=== PATIENT | male | born 1985 ===

== ENCOUNTER 2016-10-19 16:42 | Inpatient (IN) | payer MEDICAID, OTHER ==
--- NOTE | 2016-10-19 18:12 | ED PDOC ---
HPI: Psych/Substance Abuse Time Seen by Provider: 10/19/16 17:19 Chief Complaint (Nursing): Psychiatric Evaluation Chief Complaint (Provider): Alcohol Intoxication History Per: Patient History/Exam Limitations: no limitations Onset/Duration Of Symptoms: Days Current Symptoms Are (Timing): Still Present Additional Complaint(s): Earl Mojica, a 31 year old male, who has no past medical or family history of mental illness is brought into the ED by his brother for psychiatric evaluation. The patients brother states for about 10 days he has noticed a change in the patient's mental status along with rapid weight loss. He reports that the patient has been acting bizarre and has been complaining that he is hearing voices and that there is someone following him. The brother reports that 10 days ago the patient just stopped going to work and he has had this job for 2 years. He states that no one know's wrong with the patient. The patient admits that ever since he was a child he was bale to see things that other's could not see. He further states that recently he was trying to meditate to reach divine intervention and he was bale to see Gerhardkori Sands and humans of a parallel universe. The patient goes on to say that since then an alien has been following him and trying to do sexual things to him and so he has been going to jewish trying to see Gerhardkori Sands again. Denies recent infection, cough, cold, abdominal pain. Past Medical History Reviewed: Historical Data, Nursing Documentation, Vital Signs Vital Signs: Last Vital Signs Temp 98.5 F 10/19/16 17:01 Pulse 93 H 10/19/16 17:01 Resp 18 10/19/16 17:01 BP 134/78 10/19/16 17:01 Pulse Ox 100 10/19/16 17:01 - Medical History PMH: No Chronic Diseases - Family History Family History: States: Unknown Family Hx - Home Medications Home Medications: Ambulatory Orders Medication Instructions Recorded No Known Home Med 10/19/16 - Allergies Allergies/Adverse Reactions: Allergies Allergy/AdvReac Type Severity Reaction Status Date / Time No Known Allergies Allergy Verified 10/19/16 17:58 Review of Systems Constitutional: Positive for: Other (Denies recent infection.) Respiratory: Positive for: Other (Denies cold.). Negative for: Cough Gastrointestinal: Negative for: Abdominal Pain Physical Exam - Reviewed Nursing Documentation Reviewed: Yes Vital Signs Reviewed: Yes - Physical Exam Appears: Positive for: Non-toxic, No Acute Distress Head Exam: Positive for: ATRAUMATIC, NORMAL INSPECTION Skin: Positive for: Normal Color, Warm, Dry Eye Exam: Positive for: Normal appearance, EOMI, PERRL ENT: Positive for: Normal ENT Inspection Neck: Positive for: Normal, Painless ROM, Supple Cardiovascular/Chest: Positive for: Regular Rate, Rhythm, Chest Non Tender. Negative for: Tachycardia Respiratory: Positive for: Normal Breath Sounds. Negative for: Wheezing, Respiratory Distress Gastrointestinal/Abdominal: Positive for: Normal Exam, Bowel Sounds, Soft. Negative for: Tenderness, Guarding, Rebound Back: Positive for: Normal Inspection. Negative for: L CVA Tenderness, R CVA Tenderness Extremity: Positive for: Normal ROM. Negative for: Tenderness, Pedal Edema, Deformity, Swelling Neurologic/Psych: Positive for: Alert, Oriented, Gait - Laboratory Results Result Diagrams: 10/19/16 18:20 10/19/16 18:20 - ECG O2 Sat by Pulse Oximetry: 100 (RA) Pulse Ox Interpretation: Normal Medical Decision Making Medical Decision Makin:19 Initial Impression: 31 year old male presenting for psychiatric evaluation Initial Plan: * CT Head w/o contrast: * FINDINGS: BRAIN: No significant acute abnormality identified. No acute hemorrhage seen within the brain. No acute extra-axial fluid collections visualized. No evidence of significant mass effect within the brain. Normal taveras-white matter differentiation. VENTRICLES: No evidence of significant hydrocephalus. BONES/JOINTS: No acute fractures or other acute bony abnormality noted. SOFT TISSUES: No acute abnormality of the visualized soft tissues is seen. SINUSES: Visualized paranasal sinuses appear clear. MASTOID AIR CELLS: Mastoid air cells appear clear. IMPRESSION: - No acute findings seen within the brain. * Alcohol serum * Ammonia * Comp metabolic panel * Drug screen * CBC * Reevaluation PT was evaluted by crisis and will need admission for psychosis under MD Leia Scribe Attestation Documented by Nadia Laws acting as a scribe for Stephanie Ervin PA-C. MD Scribe Attestation All medical record entries made by the Daquan were at my direction and personally dictated by me. I have reviewed the chart and agree that the record accurately reflects my personal performance of the history, physical exam, medical decision making, and the department course for this patient. I have also personally directed, reviewed, and agree with the discharge instructions and disposition. Disposition - Clinical Impression Clinical Impression: Psychosis - Patient ED Disposition Is Patient to be Admitted: No - Disposition Disposition: Routine/Home Disposition Time: 19:47 Condition: STABLE - Pt Status Changed To: Hospital Disposition Of: Inpatient - Admit Certification Admit to Inpatient:: After my assessment, the patient will require hospitalization for at least two midnights. This is because of the severity of symptoms shown, intensity of services needed, and/or the medical risk in this patient being treated as an outpatient.
[2016-10-19 18:38] LABS: BASO % 0.3 % (0.0-2.0); EOS # 0.1 K/uL (0.0-0.7); HEMOGLOBIN 15.4 g/dL (12.0-18.0); LYMPH # 1.3 K/uL (1.0-4.3); LYMPH % 17.7 % (20.0-40.0); MEAN CELL VOLUME 88.6 fl (80.0-94.0); MEAN CORPUSCULAR HEMOGLOBIN 30.2 pg (27.0-31.0); MEAN PLATELET VOLUME 8.8 fl (7.2-11.7); MONO # 0.7 K/uL (0.0-0.8); NEUT # 5.3 K/uL (1.8-7.0); RBC 5.12 Mil/uL (4.40-5.90); RED CELL DISTRIBUTION WIDTH 12.4 % (11.5-14.5); WHITE BLOOD COUNT 7.4 K/uL (4.8-10.8)
[2016-10-19 18:49] LABS: ALB/GLOB RATIO 1.5 (1.0-2.1); ALBUMIN 4.9 g/dL (3.5-5.0); ALT/SGPT 46 U/L (21-72); AST/SGOT 26 U/L (17-59); BLOOD UREA NITROGEN 11 mg/dl (9-20); CALCIUM 9.4 mg/dL (8.4-10.2); GFR AFRICAN-AMERICAN > 60; GFR NON-AFRICAN AMERICAN > 60
--- NOTE | 2016-10-19 19:33 | CT ---
EXAM: CT Head Without Intravenous Contrast CLINICAL HISTORY: 31 years old, male; Signs and symptoms; Other: ETOH? Mental illness; Additional info: Hallucainotins acute onset TECHNIQUE: Axial computed tomography images of the head/brain without intravenous contrast. This CT exam was performed using one or more of the following dose reduction techniques: automated exposure control, adjustment of the mA and/or kV according to patient size, and/or use of iterative reconstruction technique. Coronal and sagittal reformatted images were created and reviewed. EXAM DATE/TIME: 10/19/2016 5:48 PM COMPARISON: No relevant prior studies available. FINDINGS: BRAIN: No significant acute abnormality identified. No acute hemorrhage seen within the brain. No acute extra-axial fluid collections visualized. No evidence of significant mass effect within the brain. Normal taveras-white matter differentiation. VENTRICLES: No evidence of significant hydrocephalus. BONES/JOINTS: No acute fractures or other acute bony abnormality noted. SOFT TISSUES: No acute abnormality of the visualized soft tissues is seen. SINUSES: Visualized paranasal sinuses appear clear. MASTOID AIR CELLS: Mastoid air cells appear clear. IMPRESSION: - No acute findings seen within the brain. - See above for remaining findings.
[2016-10-19 19:34] LABS: BARBITURATES, UR NEGATIVE (NEGATIVE); BENZODIAZEPINES, UR NEGATIVE (NEGATIVE); OPIATES, UR NEGATIVE (NEGATIVE); PHENCYCLIDINE, UR NEGATIVE (NEGATIVE)
[2016-10-19] MEDS ORDERED: Magnesium Hydroxide Susp 30 ml UD PO PRN (21:17)
[2016-10-19] MEDS ORDERED: DiphenhydrAMINE 50 mg/ml Inj IM PRN (21:17)
[2016-10-19] MEDS ORDERED: Alum-Mag Hydrox-Simethicone Susp (30 mL) PO PRN (21:17)
[2016-10-20 06:47] LABS: T4 9.23 ug/dl (5.5-11.0)
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
--- NOTE | 2016-10-20 19:22 | CARD ---
APPROVED REPORT EKG Measurement Heart [id number] VT [id number] <Conclusion> Normal sinus rhythm with sinus arrhythmia Normal ECG
--- NOTE | 2016-10-21 09:02 | PCM.PYCHPN ---
Psychiatric Progress Note - Psychiatric Progress Note Patient seen today, length of contact: Patient evaluated, case discussed with team, chart reviewed, 35 min Patient Chief Complaint: "I'm having difficulty telling what's real" Problems Identified/Issues Discussed: Patients continued auditory hallucinations, but reports that the voices are helpful to him and provide guidance. He reports that he has difficulty telling what is reality. When asked about the aliens, he states that he is not sure if they are real. We discussed continued titration of Risperdal for his acute psychosis and he was agreeable. No adverse effects noted. Medication Change: Yes (Increase Risperdal to 1 mg PO Q12) Medical Record Reviewed: Yes Mental Status Examination - Cognitive Function Orientation: Person, Place, Situation, Time Memory: Intact Attention: WNL Concentration: WNL Association: WNL Fund of Knowledge: WNL - Mood Mood: Neutral - Affect Affect: Constricted - Speech Speech: Appropriate - Formal Thought Process Formal Thought Process: Hallucinations, Delusions, Loosening of associations Psychotic Thoughts and Behaviors: +AH, +Delusions about space aliens - Suicidal Ideation Suicidal Ideation: No - Homicidal Ideation Homicidal Ideation: No Goal/Treatment Plan - Goal/Treatment Plan Need for Continued Stay: Remain at risks for inpatient hospitalization, Discharge may exacerbated symptoms, Severe functional impairment Progress Toward Problem(s) and Goals/Treatment Plan: Brief psychotic disorder; patient continues to be acutely psychotic. He requires continued hospitalization for treatment and stabilization. -Increase Risperdal to 1 mg PO Q12 hr; will titrate as clinically indicated -Individual and group therapy -Dietary Referral -Medicine consult appreciated -Disposition planning Estimated Date of D/C: 10/24/16
--- NOTE | 2016-10-22 09:36 | PCM.PYCHPN ---
Psychiatric Progress Note - Psychiatric Progress Note Patient seen today, length of contact: Patient evaluated, case discussed with team, chart reviewed, 35 min Patient Chief Complaint: "I'm special" Problems Identified/Issues Discussed: Patients continued auditory hallucinations, but reports that the bad voices went away and only the good voices are left, which help him. He believes they are fairies and creatures from another dimension. He believes he has special hood, including the ability to rewind time. He also believes he has a special mission to spread the word of God. We discussed continued titration of Risperdal for his acute psychosis and he was agreeable. No adverse effects noted. Medication Change: Yes (Increase Risperdal to 1 mg PO AM/ 2 mg HS) Medical Record Reviewed: Yes Mental Status Examination - Cognitive Function Orientation: Person, Place, Situation, Time Memory: Intact Attention: WNL Concentration: WNL Association: [facility] Fund of Knowledge: [facility] Decription of patient's judgement and insights: Poor insight/fair judgment - Mood Mood: Neutral - Affect Affect: Constricted - Speech Speech: Appropriate - Formal Thought Process Formal Thought Process: Hallucinations, Delusions, Loosening of associations Psychotic Thoughts and Behaviors: +AH, +Delusions about having special abilities - Suicidal Ideation Suicidal Ideation: No - Homicidal Ideation Homicidal Ideation: No Goal/Treatment Plan - Goal/Treatment Plan Need for Continued Stay: Remain at risks for inpatient hospitalization, Discharge may exacerbated symptoms, Severe functional impairment Progress Toward Problem(s) and Goals/Treatment Plan: Brief psychotic disorder; patient continues to be acutely psychotic. He requires continued hospitalization for treatment and stabilization. -Increase Risperdal to 1 mg AM/ 2 mg HS; will titrate as clinically indicated -Individual and group therapy -Dietary Referral -Medicine consult appreciated -Disposition planning Estimated Date of D/C: 10/27/16
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
[2016-10-23 09:24] VITALS: O2SAT 18
--- NOTE | 2016-10-23 11:54 | PCM.PYCHPN ---
Psychiatric Progress Note - Psychiatric Progress Note Patient seen today, length of contact: discussed with team Patient Chief Complaint: i am tired Problems Identified/Issues Discussed: pt in room laying in bed. he has received haldol/ativan at around 10am for auditory hallucinations that were distressing to him. he is now resting. he states the voices are getting better. he states his sleep is "messed up" but he is somewhat vague with details. he appears to be internally preoccupied and with some thought blocking. aside from the c/o feeling tired, he denies any other medication side effects. Medication Change: Yes (dc ambien, prn trazodone started. split risperdal) Medical Record Reviewed: Yes Mental Status Examination - Cognitive Function Orientation: Person, Place, Situation, Time Memory: Intact Attention: WNL Concentration: WNL Association: WNL Fund of Knowledge: WN Decription of patient's judgement and insights: fair- help seeking - Mood Mood: Neutral - Affect Affect: Constricted - Speech Speech: Appropriate, Soft - Formal Thought Process Formal Thought Process: Hallucinations, Delusions, Paranoia, Loosening of associations, Other (some thought blocking) Psychotic Thoughts and Behaviors: auditory hallucinations, bizarre delusions - Suicidal Ideation Suicidal Ideation: No - Homicidal Ideation Homicidal Ideation: No Goal/Treatment Plan - Goal/Treatment Plan Need for Continued Stay: Remain at risks for inpatient hospitalization, Discharge may exacerbated symptoms, Severe functional impairment Progress Toward Problem(s) and Goals/Treatment Plan: psychotic disorder will split the risperdal to 1mg in am and 2mg hs replace ambien with trazodone encourage participation in groups monitor for side effects pt with gross disturbance in thoughts and needs continued hospitalization. Estimated Date of D/C: 10/27/16
--- NOTE | 2016-10-24 10:50 | PCM.PYCHPN ---
Psychiatric Progress Note - Psychiatric Progress Note Patient seen today, length of contact: discussed with team Patient Chief Complaint: i just feel tired Problems Identified/Issues Discussed: pt states the voices are fading, but now only saying positive things. states they are like fairies and describes it as a spiritual thing- "i have my brain and my spiritual mind." pt cannot explain his tired feeling- not sure if it is physical or mentally tired and denies feeling depressed. pt does attend groups. he denies medication side effects. pt is asking to be given a bible to read. Medication Change: No ( ) Medical Record Reviewed: Yes Mental Status Examination - Cognitive Function Orientation: Person, Place, Situation, Time Memory: Intact Attention: WNL Concentration: WNL Association: WNL Fund of Knowledge: [facility] Decription of patient's judgement and insights: fair- help seeking - Mood Mood: Neutral - Affect Affect: Constricted - Speech Speech: Appropriate, Soft - Formal Thought Process Formal Thought Process: Hallucinations, Delusions, Paranoia, Loosening of associations, Other (some thought blocking) Psychotic Thoughts and Behaviors: auditory hallucinations- hears supportive voices, bizarre delusions- feels he can manipulate time with his mind, pentecostal preoccupation - Suicidal Ideation Suicidal Ideation: No - Homicidal Ideation Homicidal Ideation: No Goal/Treatment Plan - Goal/Treatment Plan Need for Continued Stay: Remain at risks for inpatient hospitalization, Discharge may exacerbated symptoms, Severe functional impairment Progress Toward Problem(s) and Goals/Treatment Plan: psychotic disorder will continue risperdal 1mg in am and 2mg hs encourage participation in groups monitor for side effects pt with gross disturbance in thoughts and needs continued hospitalization. Estimated Date of D/C: 10/27/16
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
--- NOTE | 2016-10-27 13:15 | PCM.PYCHPN ---
Psychiatric Progress Note - Psychiatric Progress Note Patient seen today, length of contact: in treatment team Patient Chief Complaint: i feel better, still tired Problems Identified/Issues Discussed: pt states he is thinking much more clearly. states the voices have improved. denies thoughts to harm himself. states his symptoms are now at a 9/10 with 0 being the worse. pt denies medication side effects. Medication Change: Yes (will give risperdal all at night again) Medical Record Reviewed: Yes Mental Status Examination - Cognitive Function Orientation: Person, Place, Situation, Time Memory: Intact Attention: WNL Concentration: WNL Association: [facility] Fund of Knowledge: [facility] Decription of patient's judgement and insights: fair - Mood Mood: Neutral - Affect Affect: Constricted - Speech Speech: Soft - Formal Thought Process Formal Thought Process: Hallucinations, Delusions, Paranoia, Loosening of associations Psychotic Thoughts and Behaviors: improving - Suicidal Ideation Suicidal Ideation: No - Homicidal Ideation Homicidal Ideation: No Goal/Treatment Plan - Goal/Treatment Plan Need for Continued Stay: Remain at risks for inpatient hospitalization, Discharge may exacerbated symptoms, Severe functional impairment Progress Toward Problem(s) and Goals/Treatment Plan: psychotic disorder will continue risperdal- switch to 4mg hs tomorrow encourage participation in groups monitor for side effects t/c dc thursday Estimated Date of D/C: 10/29/16
--- NOTE | 2016-10-28 11:17 | PCM.PYCHPN ---
Psychiatric Progress Note - Psychiatric Progress Note Patient seen today, length of contact: discussed with team Patient Chief Complaint: i feel better Problems Identified/Issues Discussed: pt states he is not hearing voices today. got haldol last night, and states he is sleeping better. denies any side effects. affect is brighter Medication Change: No ( ) Medical Record Reviewed: Yes Mental Status Examination - Cognitive Function Orientation: Person, Place, Situation, Time Memory: Intact Attention: WNL Concentration: WNL Association: WNL Fund of Knowledge: [facility] Decription of patient's judgement and insights: fair - Mood Mood: Neutral - Affect Affect: Constricted (brighter affect) - Speech Speech: Soft - Formal Thought Process Formal Thought Process: Paranoia, Loosening of associations Psychotic Thoughts and Behaviors: improving - Suicidal Ideation Suicidal Ideation: No - Homicidal Ideation Homicidal Ideation: No Goal/Treatment Plan - Goal/Treatment Plan Need for Continued Stay: Remain at risks for inpatient hospitalization, Discharge may exacerbated symptoms, Severe functional impairment Progress Toward Problem(s) and Goals/Treatment Plan: psychotic disorder will continue risperdal- switch to 4mg hs raffi encourage participation in groups disposition planning Estimated Date of D/C: 10/29/16
--- NOTE | 2016-10-29 13:18 | PCM.PYCHPN ---
Psychiatric Progress Note - Psychiatric Progress Note Patient seen today, length of contact: discussed with team Patient Chief Complaint: i feel better Problems Identified/Issues Discussed: pt states he is not hearing voices as much. still with some delusional thoughts. still vague and internally preoccupied. states "i am happy all the time now" but affect is flat. he is now agreeing to attend a php program and acknowledges he is not ready to work. Medication Change: Yes (increase risperdal) Medical Record Reviewed: Yes Mental Status Examination - Cognitive Function Orientation: Person, Place, Situation, Time Memory: Intact Attention: WNL Concentration: WNL Association: [facility] Fund of Knowledge: [facility] Decription of patient's judgement and insights: fair - Mood Mood: Other Additional comments: "i am happy" - Affect Affect: Blunted - Speech Speech: Soft - Formal Thought Process Formal Thought Process: Paranoia, Loosening of associations, Other (vague) Psychotic Thoughts and Behaviors: improving - Suicidal Ideation Suicidal Ideation: No - Homicidal Ideation Homicidal Ideation: No Goal/Treatment Plan - Goal/Treatment Plan Need for Continued Stay: Remain at risks for inpatient hospitalization, Discharge may exacerbated symptoms, Severe functional impairment Progress Toward Problem(s) and Goals/Treatment Plan: psychotic disorder will continue risperdal- switch to 5mg hs lauraight encourage participation in groups disposition planning Estimated Date of D/C: 10/31/16
--- NOTE | 2016-10-30 10:55 | PCM.PYCHPN ---
Psychiatric Progress Note - Psychiatric Progress Note Patient seen today, length of contact: discussed with team Patient Chief Complaint: i am ok Problems Identified/Issues Discussed: pt continues to report feeling better and no voices. has been referred to an iop program. denies medication side effects. still with constricted affect. Medication Change: No ( ) Medical Record Reviewed: Yes Mental Status Examination - Cognitive Function Orientation: Person, Place, Situation, Time Memory: Intact Attention: WNL Concentration: WNL Association: WNL Fund of Knowledge: WNL Decription of patient's judgement and insights: fair - Mood Mood: Other - Affect Affect: Blunted - Speech Speech: Soft - Formal Thought Process Formal Thought Process: Paranoia, Loosening of associations, Other (vague) Psychotic Thoughts and Behaviors: improving and denies a/v hallucinations currently. still internally preoccupied - Suicidal Ideation Suicidal Ideation: No - Homicidal Ideation Homicidal Ideation: No Goal/Treatment Plan - Goal/Treatment Plan Need for Continued Stay: Remain at risks for inpatient hospitalization, Discharge may exacerbated symptoms, Severe functional impairment Progress Toward Problem(s) and Goals/Treatment Plan: psychotic disorder will continue risperdal- at 5mg hs encourage participation in groups disposition planning- discharge tomorrow and f/u at [facility] [place] [facility] Estimated Date of D/C: 10/31/16
--- NOTE | 2016-10-31 09:54 | PCM.PYCHDC ---
Mental Status Examination - Mental Status Examination Orientation: Person, Place, Situation, Time Memory: Intact Mood: Neutral Affect: Constricted Speech: Soft Attention: WNL Concentration: WNL Association: WNL Fund of Knowledge: WNL Formal Thought Process: Other Description of patient's judgement and insight: fair and improving i/j Psychotic Thoughts and Behaviors: denies a/v hallucinations currently. still internally preoccupied Suicidal Ideation: No Current Homicidal Ideation?: No Plan: pt denies any suicidal or homicidal thoughts/plans or intent Discharge Summary - Discharge Note Reason for Hospitalization: psychotic symptoms Consultations:: List each consultation separately and include: 1. Reason for request. 2. Findings. 3. Follow-up Consultations: seen by the hospitalist Summary of Hospital Course include:: 1. Description of specific treatment plan utilized for patients during their course of treatmen. 2. Summarize the time- course for resolution of acute symptoms and/or regressed behaviors. 3. Describe issues identified and worked on during hospitalization. 4. Describe medication utilized. 5. Describe medical problems identified and treated. 6. Reassessment of suicide risk Summary of Hospital Course: pt was admitted to [facility] and oriented to the unit. pt was placed on routine safety protocols. pt was seen by the treatment team and the medical stenographer. he was started on risperdal and the dose titrated up to 5mg hs. he had no c/o side effects other than mild sedation. he had an improvement in his symptoms and reported he was no longer hearing voices at the time of discharge. he was agreeable to follow up with the aftercare program[place] [facility] [place] as prescribed. at the time of discharge he was goal directed and future oriented and was denying any suicidal or homicidal thoughts. - Final Diagnosis (DSM 5) Condition upon Discharge: STABLE DSM 5: psychotic disorder unspecified r/o schizophrenia, paranoid Disposition: HOME/ ROUTINE Follow-up Treatment Plan: follow up with aftercare appointments as directed take medication as prescribed do not use alcohol, tobacco or other illicit substances call 911 if any suicidal or homicidal thoughts/plans or intent Prescriptions/Medication Reconciliation: risperiDONE [RisperDAL] 2 mg PO HS #30 tab risperiDONE [RisperDAL] 3 mg PO HS #30 tab traZODone [Desyrel] 50 mg PO HS PRN #30 tab PRN Reason: Insomnia - Smoking Cessation Smoking Cessation Medication prescribed: No - Antipsychotic Medications Pt discharged on 2 or more routine antipsychotic medications: No
[2016-10-31 10:06] VITALS: BP 120/79; PULSE 79; RESP 18; TEMP 97.9
== END 2016-10-31 11:05 | disposition home or self-care (01) | DRG 430 ==
LOC: H.ER 16:42 → H.ERHOLD 19:22 → H.STEP 21:02 → H.PSYCH 10-21 15:18
PROVIDERS: ADMIT Psychiatry & Neurology Psychiatry; ATTEND Psychiatry & Neurology Psychiatry
PROC: GZHZZZZ Group Psychotherapy (ICD-10-PCS; principal; 2016-10-19)
PROC: GZ58ZZZ Individual Psychotherapy, Cognitive-Behavioral (ICD-10-PCS; 2016-10-19)
DX: F29 Unspecified psychosis not due to a substance or known physiological condition (principal); F10.129 Alcohol abuse with intoxication, unspecified; Z91.410 Personal history of adult physical and sexual abuse; Z87.828 Personal history of other (healed) physical injury and trauma